=== PATIENT | female | born 1975 | race Caucasian/White ===

== ENCOUNTER → 2018-05-22 | Outpatient (CLI) | payer BC ==
[~2018-05-22] VITALS: Ht 160 cm; Wt 98.9 kg
[~2018-05-22] MED LIST: CELEXA40 MG PO; SYNTHROID112 MCG PO; ZYRTEC10 M3 PO
== END | disposition home or self-care (01) ==
LOC: AMB 07:56
PROC: 0DJD8ZZ Inspection of Lower Intestinal Tract, Via Natural or Artificial Opening Endoscopic (ICD-10-PCS; principal; 2018-05-22)
DX: R10.32 Left lower quadrant pain (principal); K58.9 Irritable bowel syndrome, unspecified; K64.8 Other hemorrhoids; Z90.49 Acquired absence of other specified parts of digestive tract; Z81.1 Family history of alcohol abuse and dependence; Z80.8 Family history of malignant neoplasm of other organs or systems; Z83.49 Family history of other endocrine, nutritional and metabolic diseases; Z82.5 Family history of asthma and other chronic lower respiratory diseases; Z82.49 Family history of ischemic heart disease and other diseases of the circulatory system
CPT/HCPCS: J2250